=== PATIENT | female | born 1940 | race Caucasian/White ===

== ENCOUNTER 2017-09-14 05:41 | Observation (INO) | payer MEDICARE, OTHER ==
[~2017-09-14] VITALS: Ht 157.5 cm; Wt 60.2 kg
[~2017-09-14 05:41] MED LIST: ADVA100A INH; ALIG4CAP PO; ASPI1TAB57 PO; DIPH25CA PO; FLUN25I EACH NARE; LANS15CA PO; METO50TA PO; MONT10TA4 PO; PRAV20TA2 PO; TRIA37.5 PO; VERA1TAB17 PO
[2017-09-14] MEDS ORDERED: CHLORHEXIDINE GLUCONATE 2 % 1 PACK (2 CLOTHS) TOPICAL PRN (06:15)
[2017-09-14] MEDS ORDERED: SODIUM CHLORIDE FLUSH PRN IV FLUSH (06:15)
[2017-09-14] MEDS ORDERED: POVIDONE IODINE 5% (ANTISEPSIS KIT) 4 APPLICATIONS EACH NARE PRN (06:15)
[2017-09-14] MEDS ORDERED: LACTATED RINGER'S 1000 ML IV PRN (06:15)
[2017-09-14] MEDS ORDERED: METOPROLOL TARTRATE 25 MG TAB PO PRN (06:15)
[2017-09-14] MEDS ORDERED: INSULIN HUMAN REGULAR 1,000 UNITS/10 ML VIAL SQ PRN (06:15)
[2017-09-14] MEDS ORDERED: HEPARIN SODIUM - SQ 10,000 UNITS/ML VIAL SQ PRN (06:15)
[2017-09-14] MEDS ORDERED: SODIUM CHLORID 0.9% 500 ML IV PRN (06:15)
[2017-09-14] MEDS: ceFAZolin 1,000 MG/NS 100 ML IV SCH ×6 (06:30→11:00)
[2017-09-14 07:03] LABS: AUTOMATED NEUTROPHIL # 3.5 TH/MM3 (1.8-7.7); BASOPHIL % 0.6 % (0.0-2.0); EOSINOPHIL # 0.3 TH/MM3 (0-0.4); EOSINOPHIL % 4.9 % (0.0-4.0); HEMATOCRIT 39.8 % (35.0-46.0); HEMO FLAGS DIFF FINAL; LYMPH % 25.7 % (9.0-44.0); LYMPHOCYTE # 1.6 TH/MM3 (1.0-4.8); MEAN CELL VOLUME 100.9 FL (80.0-100.0); MEAN CORPUSCULAR HEMOGLOBIN 33.6 PG (27.0-34.0); MEAN CORPUSCULAR HGB CONC 33.3 % (32.0-36.0); MONO % 11.5 % (0.0-8.0); NEUT % 57.3 % (16.0-70.0); PLATELET COUNT 242 TH/MM3 (150-450); RED BLOOD COUNT 3.94 MIL/MM3 (4.00-5.30); RED CELL DISTRIBUTION WIDTH 14.1 % (11.6-17.2); WHITE BLOOD COUNT 6.1 TH/MM3 (4.0-11.0)
[2017-09-14] MEDS ORDERED: RESP: ALBUTEROL 2.5 MG/3 ML NEB (PRN) ONE (08:30)
[2017-09-14] MEDS ORDERED: NALOXONE HCL 0.4 MG/ML AMP ONE (08:30)
[2017-09-14] MEDS: SODIUM CHLORIDE FLUSH BID IV FLUSH SCH ×2 (09:00→21:00)
[2017-09-14] MEDS ORDERED: LIDOCAINE 1%/EPINEPHrine 1:100,000 SOLN 20 ML VIAL INFIL ONE (09:22)
[2017-09-14] MEDS ORDERED: DO NOT ADM ANY ANTICOAGULANT DRUGS PRN (11:42)
[2017-09-14] MEDS ORDERED: oxyCODONE/ACETAMINOPHEN 5 MG/325 MG TAB PO PRN (11:45)
[2017-09-14] MEDS ORDERED: SODIUM CHLORIDE 0.9% FLUSH 10 ML FLUSH IV FLUSH PRN (11:45)
[2017-09-14] MEDS ORDERED: ONDANSETRON HCL 4 MG/2 ML VIAL IVP PRN (11:45)
[2017-09-14] MEDS ORDERED: diphenhydrAMINE HCL 25 MG CAP PO PRN (11:45)
[2017-09-14] MEDS ORDERED: ACETAMINOPHEN 1000 MG/100 ML 100 ML IV ONE (11:51)
[2017-09-14] MEDS ORDERED: HYDROmorphone HCL PF 2 MG/ML VIAL ONE (11:51)
[2017-09-14] MEDS ORDERED: ONDANSETRON HCL 4 MG/2 ML VIAL IV PUSH ONE (12:00)
[2017-09-14] MEDS ORDERED: ePHEDrine/NS 25 MG/5 ML SYR IV ONE (12:00)
[2017-09-14] MEDS ORDERED: MIDAZOLAM HCL 2 MG/2 ML VIAL IV ONE (12:00)
[2017-09-14] MEDS ORDERED: LIDOCAINE HCL 1% PF 5 ML AMPULE OTHER ONE (12:00)
[2017-09-14] MEDS ORDERED: LACTATED RINGER'S 1000 ML INJ 1,000 ML IV ONE (12:00)
[2017-09-14] MEDS ORDERED: ROCURONIUM INJ 50 MG/5 ML SYRINGE IV PUSH ONE (12:00)
[2017-09-14] MEDS ORDERED: ceFAZolin INJ 1,000 MG VIAL IV ONE (12:00)
[2017-09-14] MEDS ORDERED: SODIUM CHLORIDE 0.9% 20 ML VIAL IV ONE (12:00)
[2017-09-14] MEDS ORDERED: DEXAMETHASONE SOD PHOS 4 MG/ML VIAL IV ONE (12:00)
[2017-09-14] MEDS ORDERED: METHYLENE BLUE 10 MG/ML VIAL OTHER ONE (12:00)
[2017-09-14] MEDS ORDERED: GLYCOPYRROLATE 1 MG/5 ML SYRINGE IV PUSH ONE (12:00)
[2017-09-14] MEDS ORDERED: PROPOFOL 200 MG/20 ML AMP IV ONE (12:00)
[2017-09-14] MEDS ORDERED: SUGAMMADEX SODIUM 200 MG/2 ML VIAL IV PUSH ONE ×2 (12:23)
[2017-09-14] MEDS ORDERED: *MEPERIDINE 25 MG INJ VIAL PERIprocedural Use ONLY ONE (12:49)
[2017-09-14] MEDS: D5-1/2 NS + KCL 20 MEQ INJ 1,000 ML IV SCH (13:30)
[2017-09-14] MEDS: KETOROLAC TROMETHAMINE 30 MG/ML (IVP) VIAL IVP SCH ×2 (15:15→20:46)
[2017-09-14 16:00] VITALS: BP 125/69; PULSE 87; RESP 22; TEMP 97.7; O2SAT 95
[2017-09-14 20:00] VITALS: BP 118/62; PULSE 86; RESP 16; TEMP 98.7; O2SAT 95
[2017-09-14 20:31] VITALS: PULSE 85
[2017-09-14] MEDS ORDERED: MONTELUKAST SODIUM 10 MG TAB PO SCH (21:00)
[2017-09-14] MEDS ORDERED: SODIUM CHLORIDE 0.9% FLUSH 10 ML FLUSH IV FLUSH SCH (21:00)
[2017-09-15] VITALS: BP 132/73; PULSE 78; PULSE 79; RESP 16; TEMP 98.7; O2SAT 95
[2017-09-15] MEDS: KETOROLAC TROMETHAMINE 30 MG/ML (IVP) VIAL IVP SCH ×2 (02:50→07:42)
[2017-09-15] MEDS: D5-1/2 NS + KCL 20 MEQ INJ 1,000 ML IV SCH (03:05)
[2017-09-15] MEDS: oxyCODONE/ACETAMINOPHEN 5 MG/325 MG TAB PO PRN ×2 (03:36→07:41)
[2017-09-15 04:00] VITALS: BP 120/72; PULSE 75; RESP 16; TEMP 98.6; O2SAT 96
[2017-09-15 04:05] VITALS: PULSE 70
[2017-09-15 06:29] LABS: AUTOMATED NEUTROPHIL # 7.2 TH/MM3 (1.8-7.7); BASOPHIL % 0.4 % (0.0-2.0); HEMATOCRIT 32.2 % (35.0-46.0); HEMO FLAGS DIFF FINAL; LYMPHOCYTE # 0.6 TH/MM3 (1.0-4.8); MEAN CELL VOLUME 101.4 FL (80.0-100.0); MEAN CORPUSCULAR HEMOGLOBIN 34.6 PG (27.0-34.0); MEAN CORPUSCULAR HGB CONC 34.2 % (32.0-36.0); MONO % 9.3 % (0.0-8.0); NEUT % 83.3 % (16.0-70.0); PLATELET COUNT 193 TH/MM3 (150-450); RED BLOOD COUNT 3.18 MIL/MM3 (4.00-5.30); WHITE BLOOD COUNT 8.7 TH/MM3 (4.0-11.0)
[2017-09-15 06:52] LABS: BICARBONATE 27.1 MEQ/L (21.0-32.0); POTASSIUM 3.7 MEQ/L (3.5-5.1)
[2017-09-15] MEDS ORDERED: OXYC1TAB63 PO (07:10)
[2017-09-15 07:38] VITALS: BP 136/69; PULSE 72; RESP 18; TEMP 98.6; O2SAT 94
[2017-09-15] MEDS ORDERED: VERAPAMIL HCL 120 MG SUSTAINED RELEASE TAB PO SCH (08:00)
[2017-09-15] MEDS ORDERED: VERAPAMIL HCL 240 MG SUSTAINED RELEASE TAB PO SCH (09:00)
[2017-09-15] MEDS ORDERED: TRIAMTERENE/HCTZ 37.5 MG/25 MG TAB PO SCH (09:00)
[2017-09-15] MEDS ORDERED: FLUTICASONE PROPIONATE 50 MCG/ACT 16 GM NASAL SPRAY NASAL SCH (09:00)
[2017-09-15] MEDS ORDERED: PANTOPRAZOLE SOD 20 MG DELAYED RELEASE TAB PO SCH (09:00)
[2017-09-15] MEDS ORDERED: PRAVASTATIN SOD 20 MG TAB PO SCH (09:00)
[2017-09-15] MEDS ORDERED: METOPROLOL TARTRATE 50 MG TAB PO SCH (09:00)
[2017-09-15] MEDS: SODIUM CHLORIDE FLUSH BID IV FLUSH SCH (09:00)
[2017-09-15] MEDS ORDERED: BUDESONIDE-FORMOTEROL 80/4.5 MCG INHALER INH SCH (09:00)
[2017-09-15 09:38] VITALS: PULSE 66
[2017-09-15] MEDS ORDERED: PNEUMOCOCCAL POLYVALENT INJ 25 MCG/0.5 ML SYR IM ONE (10:00)
[2017-09-15] MEDS ORDERED: INFLUENZA VIRUS VACCINE (QUADRIVALENT) 0.5 ML SYR IM ONE (10:00)
--- NOTE | 2017-09-16 21:32 | MD ---
cc: DARSHANA ZHAO M.D., KELLY L. MD APPLETON, STACI M.D. ADMISSION DATE: 09/14/2017 DISCHARGE DATE: 09/15/2017 PROCEDURE 09/14/2017, robotic-assisted laparoscopic hysterectomy, bilateral salpingo-oophorectomy, extensive lysis of adhesions. DIAGNOSIS Endometrial cancer. HOSPITAL COURSE She has done well in the early postop period, hemodynamically stable, tolerating oral intake. Moser catheter removed pending voiding. Ins, outs 3940/750. Labs this morning, H&H 11.0, 32.2, white count 8.7. Electrolytes essentially normal, BUN and creatinine 10, 0.74, potassium 3.7. PHYSICAL EXAMINATION VITAL SIGNS: She is afebrile, pulse 78-87, respirations 16-22, blood pressure 110-125 over 54-69, O2 saturations 95%. GENERAL: Alert, oriented x3. LUNGS: Clear, mild basilar rales. CARDIOVASCULAR: Regular rate and rhythm. ABDOMEN: Soft. Incisions clean and dry. AUCTIONEER ART: No bleeding. EXTREMITIES: Nontender. ASSESSMENT Postop day #1. Findings, preliminary pathology discussed, activities restrictions reviewed and questions were answered. She expressed good understanding. PLAN Anticipate discharge to home. She is to contact our office to schedule follow up in 2 weeks. She is to resume prior medications ___ prescription for Percocet. Will review the final pathology when she returns for her postop visit and she is to contact our office should she have any questions or problems in between now and the time of scheduled followup. MD LIVIA Mckinley/SHANICE /7:18 AM /9:29 PM
--- NOTE | 2017-09-19 10:23 | MP ---
cc: DARSHANA ZHAO M.D., KELLY L. MD APPLETON, STACI M.D. DATE OF SURGERY: 09/14/2017 PREOPERATIVE DIAGNOSIS Grade 1 endometrial cancer. POSTOPERATIVE DIAGNOSIS 1. Grade 1 endometrial cancer. 2. Extensive pelvic pericolonic adhesions. PROCEDURE Robotic-assisted laparoscopic hysterectomy, bilateral salpingo-oophorectomy, extensive lysis of adhesions. SURGEON Ximena Galvez. BI ANALYST [employer]. ANESTHESIA General endotracheal. ESTIMATED BLOOD LOSS 100 cc. HISTORY A 77-year-old female with postmenopausal bleeding with biopsy. Biopsy showed grade 1 endometrial cancer. She was counseled regarding options and was in favor of surgery and favored minimally invasive techniques. She is seen again in the pre-op holding area where the findings are again reviewed and plan of care is discussed. Questions were answered. She expressed good understanding and would like to move forward. FINDINGS The uterus was slightly prominent and sounded to 8 cm. Tubes and ovaries grossly normal. There were no obvious peritoneal implants. There were no enlarged pelvic or paraaortic lymph nodes. The uterus once removed on preliminary evaluation showed no obvious residual cancer and no obvious evidence of invasion. In the pelvis the colon was densely adherent to the left pelvic sidewall and to the posterior wall of the uterus and cervix and had almost a right angulation as well as an external rotation that compromised the normal anatomy of the bowel but did not result in obstruction. The cul-de-sac was obliterated and the adnexa was fixed behind the colon, partially retroperitonealized against the left pelvic sidewall. At the conclusion of the case the normal anatomy had been restored in that all of the adhesions were taken down, the colon had been mobilized and the normal contour of the colon was such that there was no remaining angulation or compromise. MODIFIER/STATEMENT OF COMPLEXITY An additional 45-60 minutes was spent lysing adhesions due to the extensive adhesions from what appeared to be prior diverticulitis as she did have diverticulum increasing the complexly of the case. Modifier should be applied accordingly. DETAILS OF PROCEDURE She has taken to the operating room, placed in dorsal lithotomy position. After general endotracheal anesthesia was administered a timeout was undertaken. She was identified by sight recognition and hospital ID bracelet and the proposed procedure was reviewed and confirmed. She was carefully positioned in padded Doug stirrups. Her arms were padded and secured to the sides. She was further secured to the operating table with eggcrate padding and tape in across chest over the shoulder fashion. All sites were noted to be properly aligned with no malalignments or pressure points. She was prepped and draped in sterile fashion, placed in high lithotomy position. The cervix was grasped. The uterine cavity was sounded. The cervix was dilated and a VCare manipulator was inserted and secured in the usual fashion. A Moser catheter was placed in the bladder. She was returned to low lithotomy position. A change of sterile gloves was undertaken. We confirmed an orogastric tube was in the stomach on suction. With manual elevation of the abdominal wall and direct laparoscopic visualization a 5 mm cannula was introduced into the left upper quadrant. An atraumatic entry was confirmed. A 12 mm cannula was placed in the midline above the umbilicus. An 8 mm cannula was placed in the right upper quadrant and left lateral quadrant, and the original 5 was exchanged for an 8 mm cannula. She was placed in Trendelenburg position. Peritoneal washings were obtained for cytology. The anatomy was explored with findings as described above. The small bowel was folded back on the mesenteric root. Three Ray-Sukumar sponges were placed around the root of the small bowel mesentery. The robotic system was brought into the operative field and attached in the usual fashion. Monopolar scissors, fenestrated bipolar forceps and ProGrasp manipulators were placed in arms #1, 2 and 3 respectively and I took my place at the surgeon's console. The right round ligament was isolated, cauterized and transected. The anterior and posterior leafs of the broad ligament were opened. The right ureter was identified. The right infundibulopelvic ligament was isolated to the level of the pelvic brim. The intervening peritoneum was opened. The infundibulopelvic ligament was cauterized and transected. Adhesions were taken down on the right side which were relatively minor compared to the left. The posterior peritoneum was opened on the right side of the uterus and cervix. The right vesicouterine peritoneum was dissected off the lower uterine segment and cervix. The right uterine vessels were skeletonized. The right uterine vessels were cauterized and transected and the cardinal, paracervical and uterosacral ligaments were isolated, cauterized and transected in a stepwise fashion. Attention was directed toward the left side. Retroperitoneal dissection was initiated to start mobilizing the colon and the colon was actually adherent all the way up to the left pelvic sidewall along the round ligament, fixed to the tube and ovary and posterior wall of the uterus and cervix. Sharp dissection was used to free these adhesions to mobilize the colon medially to reestablish its normal anatomy and to gain access to the left pelvic sidewall. The left round ligament was now isolated, cauterized and transected. Further dissection allowed identification of the left ureter and the intervening peritoneum was opened between the left ureter and the left infundibulopelvic ligament. The infundibulopelvic ligament was then cauterized and transected. Additional adhesions were taken down to free adhesions from the cul-de-sac and the posterior peritoneum along the left uterus and cervix was opened. The remainder of the bladder flap was taken down by dissecting the vesicouterine peritoneum off the left uterus and cervix and the left uterine vessels were skeletonized. The uterine vessels were isolated, cauterized and transected as were the cardinal paracervical and uterosacral ligaments thereby freeing attachments along the left side. Colpotomy was performed the cervix from the upper vagina. The specimen was withdrawn transvaginally which included uterus, cervix, tubes and ovaries, and a pneumo-occluder balloon was placed in the vagina to maintain pneumoperitoneum. Instruments 1 and 3 were exchanged for needle drivers as a 0 Vicryl suture was introduced. The vaginal cuff was closed starting at the left corner, full-thickness closure through the vaginal cuff, uterosacral ligament and posterior peritoneum, tied via instrument tie. The closure was held on countertraction as a running continuous full-thickness closure was carried across the vaginal apex to the contralateral corner where it was similarly fixed, secured and tied via instrument tie. The needle was cut and removed. The pelvis was thoroughly irrigated. Small bleeders were rendered hemostatic with bipolar cautery. The integrity of the bladder was checked by filling the bladder with saline dyed with methylene blue. The bladder was intact. There was good margin between the bladder edge and the vaginal cuff suture line. The bladder was drained. Hemostatic Juan was placed across the vaginal cuff and lateral pelvic sidewalls. Given the preliminary findings of pathology showing no overt evidence of residual disease, no invasive disease, it was felt that all reasonable surgical objectives had been completed so attention was directed toward closing. The robotic instruments were removed. The robotic system was disengaged from the operative field. I reentered the bedside under sterile condition. Under laparoscopic visualization the 12 mm fascial defect was closed with 0 Vicryl suture using a needle fascial closure apparatus and tied securely which rendered the fascia completely airtight and hemostatic. The remaining cannulas were withdrawn. Prior to removal of the 12 mm cannula each of the three Ray-Sukumar sponges that had been placed in the peritoneal cavity were removed. Each were inspected and noted to be removed in their entirety. There were no remaining foreign objects in the peritoneal cavity. Preliminary counts were correct. The remaining cannulas had been withdrawn. 3-0 Vicryl subcutaneous, 3-0 Vicryl subcuticular and Steri-Strips were used to close these incisions. She was returned to dorsal lithotomy position. Exam confirmed that the vaginal cuff was well-supported, the cuff was hemostatic, there were no vaginal lacerations, no remaining foreign objects in the vagina. Final counts were correct. She was returned to dorsal supine position and was pending reversal of anesthesia when I left the operating room to precede her to the post-anesthesia care unit. MD LIVIA Mckinley/LARISA /8:01 AM /10:01 AM
== END 2017-09-15 11:36 | disposition home or self-care (01) ==
LOC: HSDC 05:41 → HSDI 11:39 → HCIS 15:34 → HCIN 18:51
PROVIDERS: ADMIT Obstetrics & Gynecology Gynecologic Oncology; ATTEND Obstetrics & Gynecology Gynecologic Oncology
DX: C54.1 Malignant neoplasm of endometrium (principal); J44.9 Chronic obstructive pulmonary disease, unspecified; I10 Essential (primary) hypertension; K21.9 Gastro-esophageal reflux disease without esophagitis; Z85.3 Personal history of malignant neoplasm of breast; Z23 Encounter for immunization; N80.0 Endometriosis of uterus; N88.8 Other specified noninflammatory disorders of cervix uteri
CPT/HCPCS: 00840; 58552; 80048; 85025; 86850; 86900; 86901; 88309; 88331; 90732; 94150; 96361; 96374; 96376; G0008; G0009; G0378; J0131; J0690; J1100; J1170; J1644; J1885; J2175; J2250; J2310; J2405; J3010; J3480; J7120; J7613; Q2038; 88307; 90471; 90472; 90686